=== PATIENT | male | born 1945 | race Caucasian/White ===

== ENCOUNTER 2017-03-03 22:06 | Emergency (ER) | payer OTHER, MEDICARE ==
[~2017-03-03] VITALS: Ht 193 cm; Wt 110.2 kg
--- NOTE | 2017-03-03 22:12 | NUR ---
PT AMBULATORY TO ER BED 09. PRESENTS W/ FACIAL AND BILAT KNEE ABRASIONS S/P MECHANICAL TRIP AND FALL WHILE WALKING HIS DOG. PT DENIES KO. AAOX3. PLACED ON MONITOR. 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 AWAITING MD MEJIA.
--- NOTE | 2017-03-03 22:15 | NUR ---
PT STATES UTD W/ TETANUS SHOT.
--- NOTE | 2017-03-03 22:26 | NUR ---
DR WORRELL AT BEDSIDE FOR EVAL.
--- NOTE | 2017-03-03 22:34 | NUR ---
PT TO RADIOLOGY FOR HEAD AND C SPINE CT SCAN VIA WHEELCHAIR.
[2017-03-03] MEDS ORDERED: AMOX/CLAVULANATE 875 MG TABLET ONE (23:26)
--- NOTE | 2017-03-03 23:29 | NUR ---
REPORT TO CHARGE NURSE ERUM FOR ESTEBAN.
[2017-03-03] MEDS ORDERED: AMOX/CLAVULANATE 875 MG TABLET PO ONE (23:30)
[2017-03-04 00:06] VITALS: BP 161/95
== END 2017-03-04 00:06 | disposition home or self-care (01) ==
LOC: ER 22:07
DX: S02.2XXA Fracture of nasal bones, initial encounter for closed fracture (principal); S83.92XA Sprain of unspecified site of left knee, initial encounter; S83.91XA Sprain of unspecified site of right knee, initial encounter; S00.81XA Abrasion of other part of head, initial encounter; J34.2 Deviated nasal septum; W01.0XXA Fall on same level from slipping, tripping and stumbling without subsequent striking against object, initial encounter; Y93.K1 Activity, walking an animal; Y92.89 Other specified places as the place of occurrence of the external cause; Y99.8 Other external cause status
CPT/HCPCS: 70450-TC; 70486-TC; 72125-TC; 73564-TC; A4606; A6402; Z7610